=== PATIENT | male | born 1960 | race Two or more races ===

== ENCOUNTER 2019-03-14 05:26 | Day surgery (SDC) | payer OTHER ==
[~2019-03-14 05:26] MED LIST: DICLOFENAC POTA50 MG PO; PERCOCET 5/3251 TAB PO; RECTICARE30 GM TP
[2019-03-14] MEDS ORDERED: PERCOCET 5-3251 EACH PO (08:01)
[2019-03-14] MEDS ORDERED: DIBUCAINE30 GM TOP (08:02)
== END 2019-03-14 12:55 | disposition home or self-care (01) ==
LOC: CIR.AMB 05:26
DX: K60.3 Anal fistula (principal)